=== PATIENT | male | born 1980 | race Hispanic/Latino ===

== ENCOUNTER 2018-03-29 15:06 | Observation (INO) | payer MEDICAID, OTHER ==
[2018-03-29 15:07] VITALS: PULSE 78
--- NOTE | 2018-03-29 15:52 | ED PDOC ---
Arrival/HPI - General Chief Complaint: Chest Pain Time Seen by Provider: 03/29/18 15:35 Historian: Patient - History of Present Illness Narrative History of Present Illness (Text): 03/29/18 15:47 A 37 year old male, whose past medical history includes hypertension, atrial fibrillation, hyperlipidemia, presents to the emergency department for a complaint of dizziness, chest pain radiating to the left shoulder since yesterday. The patient states that the pain lasts from second to minutes and is currently asymptomatic. She notes that he is a smoker and occasionally drinks. The patient denies drug use, fevers, chills, headache, shortness of breath, dyspnea, diaphoresis, cough, abdominal pain, nausea, vomiting, diarrhea, back pain, neck pain, urinary/bowel changes, or any other complaint. PMD: Dr. Kent Time/Duration: Other (Yesterday) Symptom Onset: Sudden Symptom Course: Unchanged Activities at Onset: Rest, Light Context: Home Associated Symptoms (Text): 03/29/18 16:22 Intermittent chest pain and dizziness since yesterday. The pain lasts on the order of seconds to minutes. He is currently pain-free. He states that he had a near syncopal episode today prompting his emergency department visit. No nausea or vomiting. No diaphoresis. No dyspnea. He is a smoker with hypertension and hyperlipidemia. History of paroxysmal atrial fibrillation. He Already took his aspirin. Past Medical History - Provider Review Nursing Documentation Reviewed: Yes - Cardiac Hx Cardiac Disorders: Yes Hx Atrial Fibrillation: Yes Hx Hypertension: Yes - Pulmonary Hx Respiratory Disorders: No - Neurological Hx Neurological Disorder: No - HEENT Hx HEENT Disorder: No - Renal Hx Renal Disorder: No - Endocrine/Metabolic Hx Endocrine Disorders: Yes Other/Comment: LOW T - Hematological/Oncological Hx Blood Disorders: No - Integumentary Hx Dermatological Disorder: No - Musculoskeletal/Rheumatological Hx Musculoskeletal Disorders: No Hx Falls: No - Gastrointestinal Hx Gastrointestinal Disorders: No - Genitourinary/Gynecological Hx Genitourinary Disorders: No - Psychiatric Hx Psychophysiologic Disorder: No Hx Substance Use: No - Past Surgical History Past Surgical History: No Previous - Suicidal Assessment Feels Threatened In Home Enviroment: No Family/Social History - Physician Review Nursing Documentation Reviewed: Yes Family/Social History: No Known Family HX Smoking Status: Light Smoker < 10 Cigarettes Daily Hx Alcohol Use: No Hx Substance Use: No Hx Substance Use Treatment: No Allergies/Home Meds Allergies/Adverse Reactions: Allergies No Known Allergies Allergy (Verified 03/29/18 15:23) Home Medications: Home Meds Medication Instructions Recorded Confirmed Aspirin [Aspirin] 325 mg PO DAILY 09/12/14 03/29/18 Hydrochlorothiazide/Losartan 1 tab PO DAILY 09/12/14 03/29/18 [Losartan 50MG-HCTZ 12.5MG] Simvastatin [Simvastatin] 10 mg PO DAILY 10/04/14 03/29/18 Anastrozole [Arimidex 1 mg Tab] 1 mg PO QWK 03/29/18 03/29/18 Review of Systems - Physician Review All systems were reviewed & negative as marked: Yes - Review of Systems Constitutional: absent: Fatigue, Fevers, Night Sweats Respiratory: absent: SOB, Cough Cardiovascular: Chest Pain (Chest pain radiates to left shoulder.). absent: Palpitations, FRIEDMAN, Syncope Gastrointestinal: absent: Abdominal Pain, Diarrhea, Nausea, Vomiting Genitourinary Male: absent: Urinary Output Changes Musculoskeletal: absent: Back Pain, Neck Pain Neurological: Dizziness. absent: Headache, Focal Weakness, Gait Changes Physical Exam Vital Signs Reviewed: Yes Vital Signs Temp Pulse Resp BP Pulse Ox 03/29/18 15:24 99.7 F H 100 H 17 138/83 95 03/29/18 15:07 99.7 F H 100 H 17 138/83 95 Temperature: Afebrile Blood Pressure: Normal Pulse: Regular Respiratory Rate: Normal Appearance: Positive for: Well-Appearing, Non-Toxic, Comfortable Pain Distress: None Mental Status: Positive for: Alert and Oriented X 3 - Systems Exam Head: Present: Atraumatic, Normocephalic Pupils: Present: PERRL Extroacular Muscles: Present: EOMI Conjunctiva: Present: Normal Ears: Present: NORMAL TM, Normal Canal. No: Erythema Mouth: Present: Moist Mucous Membranes Pharnyx: No: ERYTHEMA, EXUDATE, TONSILS ENLARGED Neck: Present: Normal Range of Motion Respiratory/Chest: Present: Clear to Auscultation, Good Air Exchange. No: Respiratory Distress, Accessory Muscle Use Cardiovascular: Present: Regular Rate and Rhythm, Normal S1, S2. No: Murmurs Abdomen: No: Tenderness, Distention, Peritoneal Signs Back: Present: Normal Inspection Upper Extremity: Present: Normal Inspection. No: Cyanosis, Edema Lower Extremity: Present: Normal Inspection. No: Edema Neurological: Present: GCS=15, CN II-XII Intact, Speech Normal, Motor Func Grossly Intact Skin: Present: Warm, Dry, Normal Color. No: Rashes Psychiatric: Present: Alert, Oriented x 3, Normal Insight, Normal Concentration Medical Decision Making ED Course and Treatment: 03/29/18 15:53 Impression: A 37 year old male presents to the emergency department for a complaint of dizziness and chest pain radiating to the left shoulder since yesterday. Plan: -- EKG -- Chest X-ray -- Labs -- Reassess and disposition Progress Notes: 03/29/18 16:24 EKG shows normal sinus rhythm rate approximately 95 with new lateral inverted T waves compared with EKG of 10/04/[address] changes. 03/29/18 16:[address] on telemetry observation and requests consultation with , which has been ordered for him. 03/29/18 16:40 Patient refused his chest x-ray. - Lab Interpretations Lab Results: 03/29/18 15:55 03/29/18 15:55 Lab Results 03/29/18 15:55: Sodium 142, Potassium 3.6, Chloride 98, Carbon Dioxide 29, Anion Gap 19, BUN 28 H, Creatinine 0.9, Est GFR ( Amer) > 60, Est GFR ( Non-Af Amer) > 60, Random Glucose 112 H, Calcium 10.1, Magnesium 1.7, Total Bilirubin 0.8, AST 37, ALT 76 H, Alkaline Phosphatase 61, Lactate Dehydrogenase 478, Total Creatine Kinase 138, Troponin I < 0.01, Total Protein 7.6, Albumin 4.5, Globulin 3.1, Albumin/Globulin Ratio 1.5 03/29/18 15:55: PT 12.1, INR 1.06, APTT 28.7 03/29/18 15:55: WBC 7.3, RBC 5.27, Hgb 16.8, Hct 46.8, MCV 88.8, MCH 31.9, MCHC 35.9, RDW 12.2, Plt Count 241, MPV 10.1, Gran % 55.1, Lymph % (Auto) 33.9, Gooding % (Auto) 9.2 H, Eos % (Auto) 1.5, Baso % (Auto) 0.3, Gran # 4.00, Lymph # (Auto ) 2.5, Gooding # (Auto) 0.7 H, Eos # (Auto) 0.1, Baso # (Auto) 0.02 I have reviewed the lab results: Yes - RAD Interpretation Radiology Orders: 03/29/18 15:47 CHEST PORTABLE [RAD] Stat - EKG Interpretation Interpreted by ED Physician: Yes Type: 12 lead EKG - Scribe Statement The provider has reviewed the documentation as recorded by the Scribe Sarah Dhillon Provider Scribe Attestation: All medical record entries made by the Scribe were at my direction and personally dictated by me. I have reviewed the chart and agree that the record accurately reflects my personal performance of the history, physical exam, medical decision making, and the department course for this patient. I have also personally directed, reviewed, and agree with the discharge instructions and disposition. Disposition/Present on Arrival - Present on Arrival Any Indicators Present on Arrival: No History of DVT/PE: No History of Uncontrolled Diabetes: No Urinary Catheter: No History of Decub. Ulcer: No History Surgical Site Infection Following: None - Disposition Have Diagnosis and Disposition been Completed?: Yes Diagnosis: Chest pain, Near syncope Disposition: HOSPITALIZED Disposition Time: 16:37 Patient Plan: Observation, Telemetry Patient Problems: Current Active Problems Problem Status Onset Chest pain Acute Near syncope Acute Condition: GOOD Discharge Instructions (ExitCare): Chest Pain (ED) Referrals: Mirella Kent MD [Primary Care Provider] - Follow up with primary Forms: [employer] ([place])
[2018-03-29 16:07] LABS: BASO # 0.02 K/mm3 (0.0-2.0); BASO % 0.3 % (0.0-3.0); EOS # 0.1 (0.0-0.7); EOS % 1.5 % (1.5-5.0); GRAN % 55.1 % (50.0-68.0); HEMOGLOBIN 16.8 g/dL (14.0-18.0); LYMPH # 2.5 (1.2-3.4); LYMPH % 33.9 % (22.0-35.0); MEAN CELL VOLUME 88.8 fl (80.0-105.0); MEAN CORPUSCULAR HEMOGLOBIN 31.9 pg (25.0-35.0); MEAN CORPUSCULAR HGB CONC 35.9 g/dl (31.0-37.0); MEAN PLATELET VOLUME 10.1 fl (7.0-11.0); MONO # 0.7 (0.1-0.6); MONO % 9.2 % (1.0-6.0); RBC 5.27 10^6/uL (3.5-6.1); RED CELL DISTRIBUTION WIDTH 12.2 % (11.5-14.5); WHITE BLOOD COUNT 7.3 10^3/ul (4.5-11.0)
[2018-03-29 16:16] LABS: INR 1.06 (0.93-1.08); PARTIAL THROMBOPLASTIN TIME 28.7 Seconds (25.1-36.5); PROTHROMBIN TIME 12.1 SECONDS (9.4-12.5)
[2018-03-29 16:23] LABS: CALCIUM 10.1 mg/dL (8.4-10.5)
[2018-03-29 16:24] LABS: ALB/GLOB RATIO 1.5 (1.1-1.8); ALBUMIN 4.5 g/dL (3.0-4.8); ALT/SGPT 76 U/L (7-56); AST/SGOT 37 U/L (17-59); BLOOD UREA NITROGEN 28 mg/dL (7-21); GFR AFRICAN-AMERICAN > 60; GFR NON-AFRICAN AMERICAN > 60
[2018-03-29 16:31] LABS: TROPONIN I < 0.01 ng/mL
--- NOTE | 2018-03-29 18:51 | CARD ---
APPROVED REPORT EKG Measurement Heart [id number] <Conclusion> Normal sinus rhythm Moderate voltage criteria for LVH, may be normal variant T wave abnormality, consider inferior ischemia Abnormal ECG
[2018-03-29 21:47] VITALS: BMI 33.7
[2018-03-29] MEDS ORDERED: Pneumococcal 23-Valent Vaccine IM ONE (21:47)
--- NOTE | 2018-03-30 06:35 | HP ---
HISTORY OF PRESENT ILLNESS: The patient is a 37-year-old white male. The patient presented to the emergency room with chest pain, tingling of his lips and tongue. The patient also has pain that is radiating from the chest to the left shoulder. The patient says he is generally weak. 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 The patient has history of hypertension in the past, has palpitations, tachycardia. His accountant controller is Dr. Gomez. The patient is evaluated and at the time, the patient has improved his clinical condition. His symptoms has abated. PHYSICAL EXAMINATION VITAL SIGNS: His pulse is 90, blood pressure 137/60, respirations are 18, and O2 sat is 99% on room air. His temperature is 99 Fahrenheit. HEENT: The patient's head is normocephalic. NECK: The thyroid is not enlarged. Carotid pulses are present. JVP is flat. SKIN: Shows tattoos. LUNGS: Trachea is central. Breath sounds are vesicular. No adventitious sounds. HEART: S1 and S2 present. No murmurs. No rubs are heard. ABDOMEN: Soft. Liver and spleen not palpable, nontender, no masses. GENITOURINARY: His testicles appear to be normal and he has no genital abnormality noted. CENTRAL NERVOUS SYSTEM: Conscious, rational, oriented, but has manifestations of anxiety. He has had similar symptoms in the past. LABORATORY DATA: The patient's blood work, the CBC showed the white count is normal 7300. His differential is normal. Chemistry, the patient's liver enzymes, slightly elevated ALT 76, all other parameters seem to be okay. His BUN is 28, mildly dehydrated. The patient's EKG shows ST-T wave changes which are nonspecific and the patient's chest x-ray is clear. IMPRESSION: The patient is admitted for observation and treatment because of cardiac symptoms and past history of cardiac disorder associated with palpitations. The patient is on losartan for blood pressure 50 mg with hydrochlorothiazide 25 mg. The patient takes Arimidex 1 mg daily and apparently, the patient says he does take testosterone, the dose of which I am not clear. The patient is admitted as mentioned for cardiac evaluation. We will consult Dr. Gomez. We will place the patient on Losartan and we will also give him his Arimidex and may be repeat his hormone levels, thyroid, testosterone and estrogen. His condition is clinically stable. His prognosis is good. We will follow up. Elsa Kent MD
[2018-03-30 06:58] VITALS: O2SAT 96
[2018-03-30 08:00] LABS: BASO # 0.04 K/mm3 (0.0-2.0); BASO % 0.6 % (0.0-3.0); EOS # 0.1 (0.0-0.7); EOS % 2.1 % (1.5-5.0); GRAN # 2.9 (1.4-6.5); GRAN % 43.3 % (50.0-68.0); HEMOGLOBIN 15.4 g/dL (14.0-18.0); LYMPH % 44.1 % (22.0-35.0); MEAN CELL VOLUME 89.4 fl (80.0-105.0); MEAN CORPUSCULAR HEMOGLOBIN 31.3 pg (25.0-35.0); MEAN PLATELET VOLUME 9.9 fl (7.0-11.0); MONO # 0.7 (0.1-0.6); MONO % 9.9 % (1.0-6.0); RBC 4.92 10^6/uL (3.5-6.1); RED CELL DISTRIBUTION WIDTH 12.3 % (11.5-14.5); WHITE BLOOD COUNT 6.7 10^3/ul (4.5-11.0)
[2018-03-30 08:20] LABS: ALB/GLOB RATIO 1.5 (1.1-1.8); ALBUMIN 4.1 g/dL (3.0-4.8); ALT/SGPT 72 U/L (7-56); AST/SGOT 31 U/L (17-59); BLOOD UREA NITROGEN 23 mg/dL (7-21); CALCIUM 9.2 mg/dL (8.4-10.5); GFR AFRICAN-AMERICAN > 60; GFR NON-AFRICAN AMERICAN > 60
[2018-03-30 08:26] LABS: FREE T4 1.12 ng/dL (0.78-2.19)
[2018-03-30] MEDS ORDERED: Aspirin 325 mg EC Tablets PO SCH (10:00)
[2018-03-30 11:56] LABS: TESTOSTERONE 479 ng/mL
[2018-03-30 13:51] VITALS: BP 120/76; PULSE 75; RESP 21; TEMP 98.3
--- NOTE | 2018-03-30 20:01 | CON ---
DATE: 03/30/2018 REQUESTING PHYSICIAN: Dr. Kent. REASON FOR CONSULTATION: Near syncope and chest pain. HISTORY OF PRESENT ILLNESS: This is a 37-year-old man known to me from prior office evaluation who has had several episodes of lightheadedness and near syncope yesterday. He also had some vague chest discomfort and numbness of his jaw; he became concerned and presented to the emergency room. He has undergone a recent outpatient noninvasive cardiac workup which was relatively unremarkable. He states that he was walking in his kitchen yesterday when he began to feel a bit of a headache and developed lightheadedness. He did not lose consciousness. He was unaware of any prodromal symptoms. He had a second episode short time after which concerned him and presents to the emergency room. He also states he has vague retrosternal chest fullness as well as numbness of his mandible and tobi-buccal area. He is unaware of any palpitations. He apparently has been started on Arimidex and testosterone for an unspecified endocrine issue. He does have a history of hypertension. He is a smoker as well and has a history of hyperlipidemia as well. He reportedly has had paroxysmal atrial fibrillation in the past. MEDICATIONS: His medications at home include Hyzaar 50/12.5 mg daily, simvastatin 10 mg daily, Arimidex, and the aspirin. ALLERGIES: HE HAS NO REPORTED ALLERGIES. SOCIAL HISTORY: He is a smoker. He drinks occasionally. He is currently out of work. FAMILY HISTORY: His father has extensive heart disease as well as alive and well. REVIEW OF SYSTEMS: A 10-point review of systems is notable only for the problems mentioned above. He is fairly inactive and overweight. PHYSICAL EXAMINATION: GENERAL: He is a middle-aged man who appears somewhat anxious. VITAL SIGNS: His blood pressure is 126/76 with a pulse of 70, in sinus; respirations 16. He is afebrile. HEENT: Normocephalic, atraumatic. NECK: Supple. No JVD noted. CHEST: Clear to auscultation and percussion. HEART: PMI in normal position. No pathological murmurs or gallops are noted. ABDOMEN: Soft and mildly obese, nontender with normoactive bowel sounds. EXTREMITIES: No clubbing, cyanosis, or edema. SKIN: Warm and dry. PSYCHIATRIC: Normal mood and affect. NEUROLOGICAL: Alert and oriented x3. No gross motor or sensory is appreciable. DIAGNOSTIC DATA: White count 6.7, hematocrit 15.4 and 44 with a platelet count of 209,000. PT/PTT are normal. Potassium 3.7, BUN and creatinine are 23 and 0.9. Testosterone level is 479. TSH 1.56. AST and ALT 31 and 72 respectively. Troponin is negative. Electrocardiogram reveals sinus rhythm with no significant abnormalities. Chest x-ray is not performed. IMPRESSION: Transient episodes of lightheadedness, etiology uncertain. Thus far, no significant dysrhythmias have been documented on monitoring. His initial examination and electrocardiogram are unremarkable. His symptoms are fairly nonspecific and did not suggest any serious cardiac issues at this time. From my standpoint, discharge home when further outpatient evaluation can be planned. Neurology evaluation may be in order. If 30-day event monitor can be provided, screen for any significant dysrhythmias. Obviously, smoking abstinence should be heavily emphasized to him. Thank you for this consultation. We will be happy to continue to follow as needed. Valentin Gomez MD
--- NOTE | 2018-04-01 09:05 | PN ---
DATE: 03/30/2018 SUBJECTIVE: The patient is admitted to [facility] Telemetry Unit, room 261, bed 2. He presented in the emergency room with chest pain, radiating to the left shoulder. The patient also had some numbness and tingling. The tingling was in the lips and tongue. The patient has past history of hypertension and cardiac arrhythmia. The patient also has history of sleep apnea. He is on a CPAP device to help him breathe during the night when he is asleep. The patient is seen this morning. He is comfortable and he was refusing to take medicine, but I convinced him that he has to take it, but the patient at least while he is in the hospital. He said he will take the medicine. PHYSICAL EXAMINATION: VITAL SIGNS: The patient's vital signs this morning, the patient's pulse is 69, blood pressure 125/77, respirations are 18, O2 sat is 96% on room air. LUNGS: Clear. HEART: Normal sinus rhythm. S1 and S2 present. The patient's EKG showed nonspecific ST-T wave changes, inferior wall. ABDOMEN: Soft. Liver and spleen not palpable. There is obesity present. BLADDER BLOWER: No focal deficits. ASSESSMENT AND PLAN: The patient is in for cardiac evaluation. Dr. Gomez, the professor of environmental studies, said that he has been following up with possibly today and make arrangements for further management. The patient is advised to take the medicines this morning, which is the heart-healthy diet and he has been advised that he should not indulge in alcohol and not to smoke, take his medicine and they might need to talk to physician on the outside covered by his insurance; so, he can get some help regarding his anxiety state from time to time. Elsa Kent MD
== END 2018-03-30 14:07 | disposition home or self-care (01) ==
LOC: ED 15:06 → ERH 16:37 → 2RNO 19:17
PROVIDERS: ADMIT Internal Medicine; ATTEND Internal Medicine
DX: R07.9 Chest pain, unspecified (principal); I11.9 Hypertensive heart disease without heart failure; E78.5 Hyperlipidemia, unspecified; G47.30 Sleep apnea, unspecified; I48.0 Paroxysmal atrial fibrillation; F17.200 Nicotine dependence, unspecified, uncomplicated; Z79.811 Long term (current) use of aromatase inhibitors; Z79.82 Long term (current) use of aspirin; Z79.899 Other long term (current) drug therapy
CPT/HCPCS: 36415; 80053; 82550; 82672; 83615; 83735; 84403; 84439; 84443; 84484; 85025; 85610; 85730; 93005; 99285; G0378